=== PATIENT | male | born 1950 | race Caucasian/White ===

== ENCOUNTER 2021-06-21 13:22 | Observation (INO) | payer MEDICARE ==
[~2021-06-21] VITALS: Ht 177.8 cm; Wt 69.8 kg
[2021-06-21 15:00] LABS: BASO % 0.3 % (0.0-1.0); EOS # 0.1 10^3/uL (0.0-0.5); EOS % 0.5 % (0.0-3.0); HEMATOCRIT 35.7 % (42.0-52.0); HEMOGLOBIN 11.9 g/dl (13.5-17.5); LYMPH # 0.7 10^3/uL (1.5-5.0); LYMPH % 5.9 % (24.0-44.0); MEAN CORPUSCULAR HEMOGLOBIN 32.8 pg (27.0-33.0); MEAN CORPUSCULAR HGB CONC 33.3 g/dl (32.0-36.5); MEAN CORPUSCULAR VOLUME 98.3 fl (80.0-96.0); MONO # 1.2 10^3/uL (0.0-0.8); MONO % 10.5 % (2.0-8.0); NEUTROPHILS # 9.2 10^3/uL (1.5-8.5); NEUTROPHILS % 80.8 % (36.0-66.0); PLATELET COUNT, AUTOMATED 145 10^3/uL (150-450); RED BLOOD COUNT 3.63 10^6/uL (4.30-6.10); WHITE BLOOD COUNT 11.5 10^3/uL (4.0-10.0)
--- NOTE | 2021-06-21 15:16 | REP ---
INDICATION: AMS. COMPARISON: None. TECHNIQUE: Single portable AP view of the chest was performed. FINDINGS: There is no acute infiltrate or pulmonary edema. Lungs are clear. The heart is not significantly enlarged. The mediastinal silhouette is unremarkable. The visualized osseous structures are intact.Multiple sternal wires are present. IMPRESSION: No acute pulmonary disease. <Electronically signed by Saurav Mcmahon > 06/21/21 [id number]
[2021-06-21 15:31] LABS: CALCIUM LEVEL 8.2 MG/DL (8.8-10.2); CREATININE FOR GFR 5.7 MG/DL (0.70-1.30); GLOMERULAR FILTRATION RATE 10.5 (>42); POTASSIUM SERUM 3.3 MEQ/L (3.5-5.1)
[2021-06-21] MEDS ORDERED: METO25TA4 PO (16:25)
[2021-06-21] MEDS ORDERED: NORV5TAB PO (16:25)
[2021-06-21] MEDS ORDERED: NOVOINJ12 SC (16:25)
[2021-06-21] MEDS ORDERED: ATOR40TA75 PO (16:25)
[2021-06-21] MEDS ORDERED: HYDR-3910 PO (16:25)
--- NOTE | 2021-06-21 16:38 | REP ---
INDICATION: Pyelonephritis COMPARISON: None. TECHNIQUE: CT Scan of the abdomen and pelvis was performed without intravenous contrast. Sagittal and coronal reconstruction images performed. FINDINGS: Lung bases: There are mild bibasilar fibrotic changes. Liver: Grossly unremarkable. Gallbladder: Unremarkable. Spleen: Grossly unremarkable. Adrenals: Normal. Pancreas: Grossly unremarkable.. Kidneys: No hydronephrosis or nephrolithiasis. Ureters demonstrate no dilatation or calculus. A hypodense nodule posteriorly in the upper pole the left kidney measures 2.4 cm in diameter and probably represents a cyst. Small and large bowel: Grossly unremarkable. Free fluid: None. Abdominal aorta: No aneurysm. Adenopathy: None. Appendix: Not inflamed. Osseous structures: There are mild degenerative changes of the spine without compression deformity. Pelvis: No mass. No bladder calculus seen. IMPRESSION: No acute abnormalities as discussed above. <Electronically signed by Saurav Mcmahon > 06/21/21 [id number]
[2021-06-21 16:53] LABS: RSV AMPLIFICATION NEGATIVE (NEGATIVE)
[2021-06-21] MEDS ORDERED: GLUCAGON INJ 1MG VIAL SC PRN (18:35)
[2021-06-21] MEDS ORDERED: GLUCOSE 4GM CHEW TABLET PO PRN (18:35)
[2021-06-21] MEDS ORDERED: DEXTROSE 50% 50 ML SYRINGE IV PRN (18:35)
--- NOTE | 2021-06-21 18:43 | HPEPDOC ---
[facility] Medical History & Physical Date of Admission Jun 21, 2021 Date of Service: Jun 21, 2021 Attending Physician: PAO HUGO DO History and Physical CHIEF COMPLAINT: Weakness HISTORY OF PRESENT ILLNESS: Patient is a 70-year-old male who is visiting the area from [place] who presented to the emergency department with worsening weakness and urinary tract infection. Patient's gives most of the history as the patient is tired and she says that the patient has been doing well but over the past few days has been getting slightly worse. Patient does not create a lot of urine however, the patient's states that the patient's urine output has decreased dramatically to the point where he would had been unable to go for about a day. Patient has a history of end-stage renal disease and has been getting his dialysis while visiting the area. Patient is on a Sunday, Sunday, Sunday schedule. Patient brought his urine into the clinic today and was tested positive for urinary tract infection. Patient states he is otherwise feeling well. Patient's states that the patient had a history of urinary tract infections in the past and had multiple hospitalizations that included nec rotizing fasciitis which caused the patient to lose his left leg. Patient states that although he feels slightly tired he does not have any other complaints at this time. Patient denies any abdominal pain or fevers. PAST MEDICAL HISTORY: 1. End-stage renal disease on a Sunday, Sunday, Sunday schedule. 2. History of necrotizing fasciitis. 3. Type 2 diabetes mellitus. 4. Coronary artery disease status post bypass 5. Peripheral vascular disease PAST SURGICAL HISTORY: 1. Coronary artery bypass grafting surgery x4. 2. Left leg amputation. 3. AV fistula creation with multiple revisions. SOCIAL HISTORY: Patient lives in [place] with his and uses a cell cancer insurance. Lexi benson used to smoke and drink alcohol but does not anymore. Patient denies illicit drug use. FAMILY HISTORY: Diabetes and hypertension run in the family according the patient's ALLERGIES: Please see below. REVIEW OF SYSTEMS: General: Patient denies fevers HEENT: Patient denies headaches Cardiovascular: Patient denies chest pain Respiratory: Patient denies shortness of breath, cough GI: Patient denies abdominal pain, nausea, vomiting, diarrhea : Patient reports an increased urge to urinate but denies any pain with urination Extremities: Patient denies swelling or pain in extremities Neurological: Patient denies numbness or tingling in legs Skin: Patient denies any new rashes or lesions. Hematologic: Patient denies any easy bruising. Lymphatic: Patient denies any lumps lumps or bumps in neck, axilla, or groin HOME MEDICATIONS: Please see below. PHYSICAL EXAMINATION: VITAL SIGNS: Temperature 98.1, pulse 64, respiratory rate 18, blood pressure 115/58, pulse oximetry 100% on room air. General: Alert and oriented male patient who was laying in bed when I walked in the room. Patient did not appear to be in any acute distress. HEENT: Normocephalic, atraumatic, moist mucous membranes. Neck: No lymphadenopathy or thyromegaly Cardiac: Regular rate and rhythm, no murmurs, normal S1, normal S2 Pulm: Clear to auscultation bilaterally. 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 IMAGING: Chest x-ray performed on 06/21/2021 is reported to show no acute pulmonary disease. A CT of the abdomen pelvis performed without contrast on 06/21/2021 is reported to show no acute abnormalities. MICROBIOLOGY: Please see below. ASSESSMENT: Patient is a 70-year-old male with a past history of end-stage renal disease on a Sunday, Sunday, Sunday dialysis schedule who reports with increased weakness and fatigue who was found to have a urinary tract infection. . PLAN: 1. Urinary tract infection. Patient's urine was grossly positive for urinary tract infection. Urine culture is pending. Because of the patient's past his tory of multiple urinary tract infections combined with his end-stage renal disease, patient will be started on IV Zosyn for pseudomonal coverage as I am not sure of what the patient grew in his previous cultures as they were done in [place], [place]. Patient does not appear to be septic as his vital signs are within normal range. Patient will be admitted for observation. 2. End-stage renal disease. Nephrology has been consulted and patient will receive dialysis tomorrow. Patient received dialysis yesterday. 3. Coronary artery disease status post coronary artery bypass grafting. Chanel ent will continue his home medications. 4. Diabetes mellitus. Patient has been placed on sliding scale with a CHS coverage and hypoglycemic protocol. 5. Hypertension. Continue patient's home medications with hold parameters. 6. DVT prophylaxis: Heparin 7. CODE STATUS: Full code Disposition. Patient will be admitted for observation and will receive antibiotics. Vital Signs Vital Signs Date Time Temp Pulse Resp B/P (MAP) Pulse Ox O2 Delivery O2 Flow Rate FiO2 06/21/21 17:45 64 18 115/58 (77) 100 Room Air 06/21/21 14:33 98.1 Laboratory Data Labs 24H Laboratory Tests 2 06/21/21 14:40: Immature Granulocyte % (Auto) 2.0, Neutrophils (%) (Auto) 80.8H, Lymphocytes (%) (Auto) 5.9L, Monocytes (%) (Auto) 10.5H, Eosinophils (%) (Auto) 0.5, Basophils (%) (Auto) 0.3, Neutrophils # (Auto) 9.2H, Lymphocytes # (Auto) 0.7L, Monocytes # (Auto) 1.2H, Eosinophils # (Auto) 0.1, Basophils # (Auto) 0.0, Nucleated Red Blood Cells % (auto) 0.0 06/21/21 14:45: Anion Gap 10, Glomerular Filtration Rate 10.5L, Lactic Acid Level 2.9*H, Calcium Level 8.2L 06/21/21 14:48: Urine Color YELLOW, Urine Appearance TURBIDH, Urine pH 7.0, Urine Specific Gra vity 1.015, Urine Protein 2+H, Urine Glucose (UA) NEGATIVE, Urine Ketones NEGATIVE, Urine Blood 1+H, Urine Nitrite NEGATIVE, Urine Bilirubin NEGATIVE, Urine Urobilinogen 0.2, Urine Leukocyte Esterase 2+H, Urine WBC (Auto) TNTCH, Urine RBC (Auto) 22H, Urine Hyaline Casts (Auto) 0, Urine Bacteria (Auto) 3+H, Urine Squamous Epithelial Cells 0, Urine Mucus (Auto) SMALL, Urine Sperm (Auto) , Coronavirus (COVID-19)(PCR) NEGATIVE, Influenza Type A (RT-PCR) NEGATIVE, Influenza Type B (RT-PCR) NEGATIVE, Respiratory Syncytial Virus (PCR) NEGATIVE CBC/BMP Laboratory Tests 06/21/21 14:40 06/21/21 14:45 Microbiology Microbiology 06/21/21 Urine Culture, Received Pending Home Medications Scheduled Amlodipine Besylate (Norvasc) 5 Mg Tablet, 5 MG PO DAILY Atorvastatin Calcium (Atorvastatin Calcium) 40 Mg Tablet, 40 MG PO DAILY Hydralazine HCl (Hydralazine HCl) 25 Mg Tablet, 25 MG PO BID Insulin Regular, Human (Novolin R) 100 Unit/1 Ml Vial, 100 UNITS SC ACHS Metoprolol Tartrate (Metoprolol Tartrate) 25 Mg Tablet, 25 MG PO BID Allergies Coded Allergies: No Known Allergies (Unverified , 06/21/21) A-FIB/CHADSVASC A-FIB History Current/History of A-Fib/PAF?: No PAO HUGO DO Jun 21, 2021 18:43
[2021-06-21] MEDS: PIPERACILLIN/TAZOBACTAM SOD 2.25 GM in D5W MINI-BAG PLUS 50 ML IV SCH (18:46)
[2021-06-21] MEDS ORDERED: HOME MED LIST COMPLETE! XX SCH (19:10)
[2021-06-21] MEDS ORDERED: ASPI-161 PO (19:10)
[2021-06-21] MEDS: HumaLOG INSULIN (NovoLOG) PER UNIT SC SCH (20:57)
--- NOTE | 2021-06-21 22:03 | ECGEPIP ---
[facility] - ED Test Date: 2021-06-21 Pat Name: SHILO GOODE Department: Room: - Gender: Male Hog Dropper: ROSA : 1950 Requested By: Calin Soto Order Number: [id number] Reading MD: Calin Crabtree Measurements Intervals [place] Rate: 65 P: 78 RI: 164 QRS: 91 QRSD: 114 T: 39 QT: 478 QTc: 497 Interpretive Statements Sinus rhythm with frequent premature ventricular complexes Rightward axis Cannot rule out Anterior infarct , age undetermined NO PRIORS FOR COMPARISON Electronically Signed on 06-21-2021 22:02:53 EDT by Calin Crabtree
[2021-06-21 22:28] VITALS: BP 133/60
[2021-06-22] MEDS: PIPERACILLIN/TAZOBACTAM SOD 2.25 GM in D5W MINI-BAG PLUS 50 ML IV SCH ×2 (02:25→12:51)
[2021-06-22] MEDS: HEPARIN SOD (PORCINE) 5000UNITS/ML 1ML VIAL/SYRINGE SC SCH ×3 (05:32→22:09)
[2021-06-22 06:00] VITALS: BP 133/71
[2021-06-22 06:15] LABS: HEMATOCRIT 33.4 % (42.0-52.0); HEMOGLOBIN 11.2 g/dl (13.5-17.5); MEAN CORPUSCULAR HEMOGLOBIN 32.5 pg (27.0-33.0); MEAN CORPUSCULAR HGB CONC 33.5 g/dl (32.0-36.5); MEAN CORPUSCULAR VOLUME 96.8 fl (80.0-96.0); PLATELET COUNT, AUTOMATED 149 10^3/uL (150-450); RED BLOOD COUNT 3.45 10^6/uL (4.30-6.10); WHITE BLOOD COUNT 10.3 10^3/uL (4.0-10.0)
[2021-06-22 06:24] LABS: CALCIUM LEVEL 7.8 MG/DL (8.8-10.2); CREATININE FOR GFR 6.78 MG/DL (0.70-1.30); GLOMERULAR FILTRATION RATE 8.6 (>42); MAGNESIUM LEVEL 2.1 MG/DL (1.8-2.4)
[2021-06-22] MEDS: HumaLOG INSULIN (NovoLOG) PER UNIT SC SCH ×4 (07:30→21:00)
[2021-06-22] MEDS: **hydrALAZINE HCL** 25 MG TAB PO SCH ×2 (12:54→22:08)
[2021-06-22] MEDS: METOPROLOL TART 25 MG TABLET PO SCH ×2 (12:54→22:08)
[2021-06-22] MEDS: amLODIPine 5 MG TAB PO SCH ×2 (12:55→22:07)
[2021-06-22 13:15] VITALS: BP 147/73
[2021-06-22] MEDS ORDERED: LevoFLOXacin 750 MG TABLET PO ONE (15:35)
--- NOTE | 2021-06-22 15:41 | IPNPDOC ---
Text Note Date of Service The patient was seen on 06/22/21. NOTE Subjective: Patient is a 70-year-old male who presented to the emergency depar tment yesterday with weakness and urinary tract infection. Patient stated that he has been having diarrhea which is causing his anal area to be tender and painful. Patient states that he has had a history of diarrhea and constipation. Patient has remote history of C. difficile in the past. Patient states he was having some diarrhea prior to coming in but this has worsened. Patient did well with dialysis today and states that the pressure that he was having in his lower abdomen has improved. Review of systems: General: Patient denies fevers HEENT: Patient denies headaches Cardiovascular: Patient denies chest pain Respiratory: Patient denies shortness of breath, cough GI: Patient denies abdominal pain, nausea, vomiting, diarrhea : Patient denies increased frequency or pain with urination Extremities: Patient denies swelling or pain in extremities Neurological: Patient denies numbness or tingling in legs Physical exam: Vitals: See below General: Alert and oriented to person, place, and time male who was laying in bed getting dialysis when I walked in the room. Patient not appear to be in any acute distress. HEENT: Normocephalic, atraumatic, moist mucous membranes. Neck: No lymphadenopathy or thyromegaly Cardiac: Regular rate and rhythm, no murmurs, normal S1, normal S2 Pulm: Clear to auscultation bilaterally. No wheezes, rhonchi, rales Abd: Nondistended, nontender to palpation, normal bowel sounds Ext: No edema bilateral lower extremities Labs: See below Imaging: No new imaging has been performed Assessment/plan: 70-year-old male past history of ESRD on a Sunday, Sunday, Sunday dialysis schedule reports with increased weakness and fatigue is found to have urinary tract infection. 1. Urinary tract infection. Patient's urine culture is pending. Patient was started on IV Zosyn for pseudomonal coverage and will start on Levaquin today as I believe the IV Zosyn may be causing antibiotic induced diarrhea. We will continue to monitor the patient. Patient received 750 mg of Floxin today and will start levofloxacin 500 mg every 48 hours on Sunday. 2. Diarrhea. I believe this is most likely secondary to antibiotic induced diarrhea as piperacillin/tazobactam has a 1 in 10 chance of causing diarrhea. We will switch his antibiotics levofloxacin and the patient will be given probiotics. We will continue to monitor. If the patient's white count rises tomorrow, we will do a GI panel. 3. End-stage renal disease. Nephrology has been consulted and the patient received dialysis today. 4. Coronary artery disease status post coronary bypass grafting surgery. Continue home medications. 5. Diabetes mellitus. Sliding scale coverage. 6. Hypertension. Continue home medications. DVT Prophylaxis: Heparin Disposition: Pending improvement clinically. Possible discharge tomorrow VS,Adolfo, I+O VS, Adolfo, I+O Laboratory Tests 06/22/21 05:35 Vital Signs Date Time Temp Pulse Resp B/P (MAP) Pulse Ox O2 Delivery O2 Flow Rate FiO2 06/22/21 14:43 97.9 16 100 Room Air 06/22/21 13:15 76 147/73 (97) I&O- Last 24 Hours up to 6 AM 06/22/21 06:00 Intake Total 50 ml Output Total 25 ml Balance 25 ml PAO HUGO DO Jun 22, 2021 15:41
--- NOTE | 2021-06-22 17:59 | CR ---
NEPHROLOGY CONSULTATION DATE: 06/22/2021 REQUESTING PHYSICIAN: Dr. Sonido Charlton CONSULTING PHYSICIAN: Dr. Lenny Mane REASON FOR CONSULTATION: To assist in the management of end-stage renal disease. HISTORY OF PRESENT ILLNESS: Mr. Kamara is a 70-year-old gentleman who was admitted to [facility] last evening via the Emergency Room. I did discuss with the Emergency Room physician last evening at the time of his evaluation. The patient has a known history of end-stage renal disease, diabetes, coronary artery disease, and peripheral vascular disease. He is visiting [facility] from [place] and has been receiving outpatient dialysis on a Sunday, Sunday and Sunday schedule. He is now admitted due to weakness and a urinary tract infection. A nephrology consultation was requested and the patient is seen this morning as the patient is due for dialysis today. PAST MEDICAL AND SURGICAL HISTORY: The patient's past medical and surgical history is significant for: 1. Type 2 diabetes. 2. Hypertension. 3. Coronary artery disease. 4. Peripheral vascular disease. 5. End-stage renal disease requiring maintenance hemodialysis. PAST SURGICAL HISTORY: The patient's past surgical history is significant for: 1. Coronary artery bypass surgery. 2. Left leg amputation. 3. AV fistula creation in left arm. 4. History of necrotizing fasciitis. FAMILY HISTORY: The patient's family history is significant for hypertension and diabetes. PERSONAL AND SOCIAL HISTORY: The patient is from [place], visiting the [facility]. He lives with his . He is a reformed smoker and does not drink anymore. He denies any illicit drug use. MEDICATIONS: His outpatient medications include: 1. Amlodipine 5 mg daily. 2. Atorvastatin 40 mg daily. 3. Hydralazine 25 mg twice daily. 4. Metoprolol 25 mg twice daily. 5. NovoLog insulin per sliding scale. ALLERGIES: The patient has no known drug allergies. REVIEW OF SYSTEMS: Constitutional: He denies any fevers or chills. He was just feeling weak and tired yesterday. Ears, nose and throat: Unremarkable. Cardiovascular: Negative for dyspnea or chest pain. She reports chest pain and shortness of breath. Respiratory: Negative for cough or hemoptysis. Gastrointestinal: Negative for vomiting or diarrhea. Genitourinary: Significant for dysuria and cloudy urine. He has a prior history of recurrent urinary tract infections. Musculoskeletal: Significant for hip pain and prior left leg below the knee amputation. Endocrine: Significant for type 2 diabetes and secondary hyperparathyroidism. Psychosocial: Negative for depression or anxiety. Neurological: Negative for seizures or strokes. Skin: Negative for rashes or ulcers. Hematological: Significant for anemia of chronic kidney disease. He is not on any watermelon inspector anticoagulation. PHYSICAL EXAMINATION: VITAL SIGNS: Temperature 97.2 degrees Fahrenheit, heart rate 78 per minute, respiratory rate 20 per minute, blood pressure 133/70 mm of mercury and oxygen saturation 100%. HEENT: His head is atraumatic. There is no oral thrush or ulcers. NECK: Supple and without JVD or thyroid enlargement. HEART: Regular. LUNGS: Clear to auscultation. ABDOMEN: Soft and nontender and bowel sounds are normal. EXTREMITIES: Without any cyanosis or clubbing. Left arm AV fistula is patent. He has a prior left below the knee amputation. NEUROLOGICAL: He is awake, alert, and oriented x3. LABORATORY STUDIES: His labs today show a WBC count of 10.3, hemoglobin 11.2 and hematocrit 33.4, platelet count 149. Urinalysis showed too numerous to count WBCs and 22 RBCs. He has 3+ bacteria and urine culture is pending. His chemistries today showed sodium of 138, potassium 3.0, BUN 51 and creatinine 6.78. Glucose 203. Yesterday his lactic acid level was 2.9 which has come down to 1.9. PROBLEMS: 1. End-stage renal disease - The patient is regularly dialyzed on a Sunday, Sunday and Sunday schedule. He is due for dialysis today and is going to be dialyzed this morning. 2. Hypokalemia this is probably related to poor oral intake and we will dialyze him with 4.0 mEq potassium bath. This will correct his hypokalemia. He has also received some potassium supplement. 3. Urinary tract infection - The patient has been treated with Levofloxacin pending his urine culture. 4. Hypertension - blood pressure seems very well controlled on his chronic antihypertensive medications. 5. Anemia his anemia is mild and does not need any intervention at present. Thank you for involving me in the care of Mr. Kamara. I will follow him along with you.
[2021-06-22] MEDS: LACTOBACILLUS ACIDOPHILUS CAP (BACID) PO SCH (18:10)
[2021-06-22] MEDS ORDERED: ASPIRIN 81MG ENTERIC TABLET PO SCH (21:00)
[2021-06-22] MEDS ORDERED: ATORVASTATIN 20 MG TAB PO SCH (21:00)
[2021-06-22 22:00] VITALS: BP 141/70
[2021-06-23] MEDS: HEPARIN SOD (PORCINE) 5000UNITS/ML 1ML VIAL/SYRINGE SC SCH ×2 (05:46→13:17)
[2021-06-23 06:00] VITALS: BP 130/63
[2021-06-23 06:08] LABS: HEMATOCRIT 34.8 % (42.0-52.0); HEMOGLOBIN 11.3 g/dl (13.5-17.5); MEAN CORPUSCULAR HEMOGLOBIN 31.8 pg (27.0-33.0); MEAN CORPUSCULAR HGB CONC 32.5 g/dl (32.0-36.5); PLATELET COUNT, AUTOMATED 158 10^3/uL (150-450); RED BLOOD COUNT 3.55 10^6/uL (4.30-6.10); WHITE BLOOD COUNT 12.5 10^3/uL (4.0-10.0)
[2021-06-23 06:27] LABS: CALCIUM LEVEL 7.8 MG/DL (8.8-10.2); CREATININE FOR GFR 4.96 MG/DL (0.70-1.30); GLOMERULAR FILTRATION RATE 12.4 (>42); POTASSIUM SERUM 3.8 MEQ/L (3.5-5.1)
[2021-06-23 09:00] VITALS: BP 130/71
[2021-06-23] MEDS: **hydrALAZINE HCL** 25 MG TAB PO SCH (09:00)
[2021-06-23] MEDS: HumaLOG INSULIN (NovoLOG) PER UNIT SC SCH ×2 (09:25→13:17)
[2021-06-23] MEDS: LACTOBACILLUS ACIDOPHILUS CAP (BACID) PO SCH ×2 (09:32→13:17)
[2021-06-23] MEDS: amLODIPine 5 MG TAB PO SCH (09:33)
[2021-06-23] MEDS: METOPROLOL TART 25 MG TABLET PO SCH (09:33)
[2021-06-23 11:40] LABS: CLOSTRIDIUM DIFFICILE PCR NEGATIVE (NEGATIVE)
--- NOTE | 2021-06-23 11:46 | IPN ---
PROGRESS NOTE DATE: 06/23/2021 SUBJECTIVE: Mr. Kamara is seen this morning on his bedside. He is feeling better today and reports that his diarrhea has improved. He denies any nausea, vomiting, dyspnea or chest pain. His weakness is also better. He was dialyzed yesterday and he tolerated his dialysis well. OBJECTIVE: VITAL SIGNS: Temperature is 97.3 degrees Fahrenheit, heart rate 80 per minute and respiratory rate is 20 per minute, blood pressure is 130/70 mmHg and oxygen saturation 98% on room air. LABORATORY DATA His urine culture has come back positive for Klebsiella pneumoniae. Today's labs showed a WBC of 12.5, hemoglobin 11.3 and hematocrit 34.8. Sodium is 139 and potassium is 3.8. BUN 35 and creatinine 4.96. PROBLEMS: 1. Endstage renal disease. Patient was dialyzed yesterday and his next dialysis will be scheduled for tomorrow. At present, there is no emergent need for dialysis today. 2. Hypokalemia, nutritional and related to diarrhea. His potassium level has improved. No intervention is needed at this point. 3. UTI. His urine culture did come back positive for Klebsiella which is sensitive to almost everything except ampicillin. He can probably be treated with oral antibiotic as an outpatient now. Here, he was receiving levofloxacin and can continue with levofloxacin after every dialysis as an outpatient. 4. Anemia, his anemia is mild and stable and does not need any urgent intervention. 5. Diarrhea, patient feels that his diarrhea is improving. At this point, there is no stool test done yet.
[2021-06-23] MEDS ORDERED: LEVO500T3 PO (13:00)
[2021-06-23] MEDS ORDERED: RISATAB3 PO (13:06)
--- NOTE | 2021-06-23 16:13 | DS.PDOC ---
Discharge Summary General Date of Admission Jun 21, 2021 at 13:23 Date of Discharge 06/23/2021 Attending Physician: PAO HUGO DO Specialist/Consultants Involve: BENTLEY CAMEJO MD @ Discharge Summary PROCEDURES PERFORMED DURING STAY: None. ADMITTING DIAGNOSES: 1. Urinary tract infection. 2. End-stage renal disease 3. Coronary artery disease 4. Diabetes mellitus 5. Hypertension DISCHARGE DIAGNOSES: 1. Urinary tract infection. 2. Antibiotic induced diarrhea 3. End-stage renal disease 4. Coronary artery disease 5. Diabetes mellitus 6. Hypertension COMPLICATIONS/CHIEF COMPLAINT: Urinary Tract Infection. HISTORY OF PRESENT ILLNESS: Patient is a 70-year-old male who is visiting the area from [place] who presented to the emergency department with worsening weakness and urinary tract infection. Patient's gives most of the history as the patient is tired and she says the patient had been doing well but over the past few days he has been getting worse. Patient does not create a lot of urine however, the patient's says the patient's urine output has dramatically decreased to the point where he has been unable to go for about a day. Patient has a history of end-stage renal disease and is getting dialysis on a Sunday, Sunday, Sunday schedule. Patient has been feeling a lot of pressure in his bladder and states that he was able to produce a sample on the day of admission, 06/21/2021 which was found to be grossly positive for urinary tract infection. Patient was admitted for further management. HOSPITAL COURSE: Patient was initially started on IV Zosyn for his urinary tract infection. Nephrology was consulted and did perform dialysis on 06/22/2021. Patient began having diarrhea after starting IV Zosyn and his antibiotics were switched to p.o. Levaquin. Patient was given probiotics. Patient did have multiple episodes of diarrhea overnight on 06/22/2021. C. difficile toxin PCR was ordered on 06/23/2021 and was negative. Patient had been feeling better. Urine culture came back positive for Klebsiella pneumonia which was sensitive to Levaquin. Patient was deemed ready for discharge to have outpatient dialysis tomorrow and then return to his home on 06/25/2021. Patient was discharged home from the hospital on 06/23/2021. DISCHARGE MEDICATIONS: Please see below. ALLERGIES: Please see below. PHYSICAL EXAMINATION ON DISCHARGE: VITAL SIGNS: Please see below. General: Alert and oriented male patient who was laying in bed when I walked in. Patient not appear to be in any acute distress. HEENT: Normocephalic, atraumatic, moist mucous membranes. Neck: No lymphadenopathy or thyromegaly Cardiac: Regular rate and rhythm, no murmurs, normal S1, normal S2 Pulm: Clear to auscultation bilaterally. 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 IMAGING: Chest x-ray performed on 06/21/2021 is reported to show no acute pulmonary disease. A CT of the abdomen pelvis performed without contrast on 06/21/2021 is reported to show no acute abnormalities. PROGNOSIS: Good ACTIVITY: As tolerated. DIET: Renal DISCHARGE PLAN: Discharge home DISPOSITION: 01 Home, Self-Care. DISCHARGE INSTRUCTIONS: 1. Follow-up with your primary care within 3 to 5 days discharge. 2. Follow-up with dialysis tomorrow for regular scheduled dialysis 3. Continue take Levaquin 500 mg every 48 hours for 3 more doses 4. Continue take probiotic for antibiotic induced diarrhea 5. Return to the emergency department if symptoms worsen ITEMS TO FOLLOWUP ON ON OUTPATIENT: 1. Resolution of urinary tract infection. DISCHARGE CONDITION: Stable. TIME SPENT ON DISCHARGE: 25 minutes. Vital Signs/I&Os Vital Signs Date Time Temp Pulse Resp B/P (MAP) Pulse Ox O2 Delivery O2 Flow Rate FiO2 06/23/21 09:33 80 06/23/21 09:00 130/71 06/23/21 06:00 97.3 22 98 Room Air I&O- Last 24 Hours up to 6 AM 06/23/21 06:00 Intake Total 220 ml Output Total 750 ml Balance -530 ml Laboratory Data Labs 24H Laboratory Tests 2 06/22/21 17:02: Bedside Glucose (Misc Panel) 113H 06/22/21 21:21: Bedside Glucose (Misc Panel) 139H 06/23/21 05:42: Nucleated Red Blood Cells % (auto) 0.0, Anion Gap 8, Glomerular Filtration Rate 12.4L, Calcium Level 7.8L, Magnesium Level 2.0 06/23/21 09:40: Clostridium difficile [id number] PRESUMPTIVE NEGATIVE, Clostridium difficile Toxin (PCR) NEGATIVE 06/23/21 12:10: Bedside Glucose (Misc Panel) 172H CBC/BMP Laboratory Tests 06/23/21 05:42 FSBS Laboratory Tests Test 06/22/21 17:02 06/22/21 21:21 06/23/21 12:10 Range/Units Bedside Glucose (Misc Panel) 113 139 172 83-110 MG/DL Microbiology Microbiology 06/21/21 Urine Culture - Final, Complete Klebsiella Pneumoniae Discharge Medications Scheduled Amlodipine Besylate (Norvasc) 5 Mg Tablet, 5 MG PO BID, (Reported) Aspirin (Aspirin EC) 81 Mg Tablet.dr, 81 MG PO QPM, (Reported) Atorvastatin Calcium (Atorvastatin Calcium) 40 Mg Tablet, 40 MG PO QHS, (Reported) Hydralazine HCl (Hydralazine HCl) 25 Mg Tablet, 25 MG PO BID, (Reported) Insulin Regular, Human (Novolin R) 100 Unit/1 Ml Vial, 1 DOSE SC ACHS, (Rep orted) PER SLIDING SCALE L.acidoph/L.bulg/B.bif/S.therm (Any-Bid Caplet) 1 Each Tablet, 2 EA PO WM Levofloxacin (Levofloxacin) 500 Mg Tablet, 500 MG PO Q48H Take 1 pill every 48 hours starting on 06/24/2021 for 3 doses Metoprolol Tartrate (Metoprolol Tartrate) 25 Mg Tablet, 25 MG PO BID, (Reported) Allergies Coded Allergies: No Known Allergies (Unverified , 06/21/21) PAO HUGO DO Jun 23, 2021 16:13
[2021-06-24] MEDS ORDERED: LevoFLOXacin 500 MG TABLET PO SCH (18:00)
== END 2021-06-23 14:36 | disposition home or self-care (01) ==
LOC: M ED 13:22 → M ED INP 13:23 → M MSPAV 22:28
PROVIDERS: ADMIT Family Medicine; ATTEND Family Medicine
DX: N39.0 Urinary tract infection, site not specified (principal); B96.1 Klebsiella pneumoniae [K. pneumoniae] as the cause of diseases classified elsewhere; K52.1 Toxic gastroenteritis and colitis; T36.8X5A Adverse effect of other systemic antibiotics, initial encounter; N18.6 End stage renal disease; Z99.2 Dependence on renal dialysis; E87.6 Hypokalemia; D64.9 Anemia, unspecified; I25.10 Atherosclerotic heart disease of native coronary artery without angina pectoris; E11.51 Type 2 diabetes mellitus with diabetic peripheral angiopathy without gangrene; I12.0 Hypertensive chronic kidney disease with stage 5 chronic kidney disease or end stage renal disease; R53.1 Weakness; N25.81 Secondary hyperparathyroidism of renal origin; Z95.1 Presence of aortocoronary bypass graft; Z87.891 Personal history of nicotine dependence; Z79.899 Other long term (current) drug therapy; Z79.82 Long term (current) use of aspirin; Z79.2 Long term (current) use of antibiotics; Z79.4 Long term (current) use of insulin
CPT/HCPCS: 36415; 71045; 74176; 80048; 81001; 83605; 83735; 85025; 85027; 87088; 87186; 87340; 87493; 87631; 93005; 93041; 94760; 96365; 96366; 96372; 96376; 99285; G0257; G0378; J1644; J2543